=== PATIENT | female | born 1945 | race Caucasian/White ===

== ENCOUNTER 2018-10-05 01:38 | Emergency (ER) | payer MEDICARE, MEDICAID ==
[2018-10-05] MEDS: IPRATROPIUM (NEB) 0.5 MG/2.5 ML AMP NEB (01:58)
[2018-10-05] MEDS: ALBUTEROL 0.083% (NEB) 2.5 MG/3 ML AMP NEB (01:58)
[2018-10-05] MEDS ORDERED: ACETAMINOPHEN 325 MG TAB PO (02:30)
[2018-10-05] MEDS: OXYCODONE/ACETAMINOPHEN (10/325) TAB PO (03:20)
[2018-10-05] MEDS: ONDANSETRON 4 MG INJ IV (04:49)
[2018-10-05] MEDS: HYDROmorphONE 0.5 MG/0.5 ML SYG IV ×2 (04:49→08:00)
== END 2018-10-05 08:46 | disposition home or self-care (01) ==
LOC: E/R 01:38
DX: R04.0 Epistaxis (principal); J44.9 Chronic obstructive pulmonary disease, unspecified; I10 Essential (primary) hypertension
CPT/HCPCS: 94664; 96374; 96375; 96376; 99284-25